=== PATIENT | female | born 1965 | race Two or more races ===

== ENCOUNTER 2017-02-28 20:09 | Emergency (ER) | payer SELFPAY ==
[~2017-02-28] VITALS: Ht 165.1 cm; Wt 72.6 kg
--- NOTE | 2017-02-28 20:15 | NUR ---
BIBRA 38 FROM HOME C/O CHEST PAIN S/P ARGUMENT WITH FAMILY. PATIENT IS A/OX 4. BREATHING EVEN AND UNLABORED. NO SOB. SKIN WARM AND DRY. VITALS STABLE. SAFETY AND COMFORT MEASURES IN PLACE. MD AT BEDSIDE FOR EVAL.
[2017-02-28] MEDS ORDERED: LORAZEPAM 1 MG TABLET ONE (20:24)
--- NOTE | 2017-02-28 20:28 | NUR ---
PATIENT MEDICATED PER MD ORDERS.
[2017-02-28] MEDS ORDERED: LORAZEPAM 0.5 MG TABLET PO ONE (20:30)
[2017-02-28 21:59] VITALS: BP 142/86
--- NOTE | 2017-02-28 22:00 | NUR ---
Patient discharged to home in stable condition. Written and verbal after care instructions given. Patient verbalizes understanding of instruction.
== END 2017-02-28 21:59 | disposition home or self-care (01) ==
LOC: ER 20:11
DX: R07.89 Other chest pain (principal); F41.9 Anxiety disorder, unspecified; E78.00 Pure hypercholesterolemia, unspecified
CPT/HCPCS: 71010; 93005; 99284; A4606; Z7610

== ENCOUNTER 2021-10-26 17:32 | Emergency (ER) | payer MEDICAID ==
[~2021-10-26] VITALS: Ht 167.6 cm; Wt 63.5 kg
--- NOTE | 2021-10-26 18:42 | NUR ---
RN NOTES PATIENT BROUGHT SELF ER ON COMPLAINING OF CHEST PAIN, BP-161/92, P-74, R-24. IV ACCESS ON RFA GAUGE 20, LAB WORK DONE. ER MD AT BEDSIDE.
[2021-10-26] MEDS ORDERED: LORAZEPAM 0.5 MG TABLET ONE (19:18)
--- NOTE | 2021-10-26 19:19 | NUR ---
RN NOTES ADMINISTERED ATIVAN 0.5 MG PO PRN FOR ANXIETY, BP 161/92, P-74. ENDORSED ONCOMING NURSE MAURA.
[2021-10-26] MEDS ORDERED: LORAZEPAM 0.5 MG TABLET PO ONE (19:30)
--- NOTE | 2021-10-26 19:30 | NUR ---
RECEIVED REPORT FROM MELBA ZAVALETA. PATIENT IS AAOX4. FACETIMING FAMILY. -CP, -SOB AT THE MOMENT. VITALS CHECKED.
[2021-10-26 19:49] LABS: CALCIUM, SERUM 9.6 mg/dL (8.5-10.1); CARBON DIOXIDE 26 mmol/L (21-32); CHLORIDE 102 mmol/L (98-107); CREATININE 0.7 mg/dL (0.6-1.3); GLUCOSE 81 mg/dL (74-106); POTASSIUM 4.2 mmol/L (3.5-5.1); SODIUM SERUM 140 mmol/L (136-145); UREA NITROGEN, BLOOD 16 mg/dL (7-18)
[2021-10-26] MEDS ORDERED: CLONIDINE HCL 0.1 MG TABLET PO ONE (20:00)
[2021-10-26 20:02] LABS: BASOPHILS % (AUTO) 0.5 % (0.0-2.0); EOSINOPHILS % (AUTO) 0.5 % (0.0-6.0); HEMATOCRIT 41 % (33-45); HEMOGLOBIN 13.5 g/dL (11.5-14.8); LYMPHOCYTES % (AUTO) 30.7 % (20.0-44.0); MEAN CORPUSCULAR HGB CONC 33 g/dl (31.0-36.0); MEAN CORPUSCULAR VOLUME 88 fL (82-100); MONOCYTES # (AUTO) 0.5 K/uL (0.1-1.30); MONOCYTES % (AUTO) 7.5 % (2.0-12.0); NEUTROPHILS # (AUTO) 3.9 K/uL (1.8-8.9); NEUTROPHILS % (AUTO) 60.8 % (43.0-81.0); PLATELET COUNT (AUTO) 270 K/uL (150-450); RED BLOOD CELL COUNT(AUTO) 4.67 MIL/uL (4.0-5.2); WHITE BLOOD COUNT (AUTO) 6.5 K/uL (4.3-11.0)
[2021-10-26] MEDS ORDERED: CLONIDINE HCL 0.1 MG TABLET ONE (20:04)
[2021-10-26 22:08] VITALS: BP 107/63
--- NOTE | 2021-10-26 22:08 | NUR ---
IV CANNULA REMOVED
--- NOTE | 2021-10-26 22:08 | NUR ---
Patient discharged to home in stable condition. Written and verbal after care instructions given. Patient verbalizes understanding of instruction.
== END 2021-10-26 22:09 | disposition home or self-care (01) ==
LOC: ER 17:56
DX: R07.89 Other chest pain (principal); I10 Essential (primary) hypertension; F41.9 Anxiety disorder, unspecified; E78.00 Pure hypercholesterolemia, unspecified
CPT/HCPCS: 36415; 71045-TC; 80048-TC; 84484-TC; 85025-TC